=== PATIENT | male | born 1960 | race Caucasian/White ===

== ENCOUNTER 2019-07-09 15:57 | Emergency (ER) | payer OTHER, SELFPAY ==
[2019-07-09 16:09] VITALS: BP 161/86; PULSE 82; RESP 20; TEMP 37.1; O2SAT 99
--- NOTE | 2019-07-09 16:15 | ED.EXTPRO ---
HPI - Extremity Problem General Chief complaint: Extremity Problem,Nontraumatic Stated complaint: R/elbow pain History of Present Illness HPI Narrative: This is a 58-year-old male comes in complaining right elbow pain states that he had a pimple that he picked and started to leak a little bit when he picked it is continued to get red and swollen and hurting when he moves around. Patient states he talked to his doctor today who told him that he would need to have it drained but would not see him in the office until the covid is over. Patient states it has been a while and they will have to see him as a new patient. Related Data Allergies Allergy/AdvReac Type Severity Reaction Status Date / Time No Known Allergies Allergy Verified 07/09/19 16:14 Review of Systems Review of Systems: Narrative: CONSTITUTIONAL: Denies fever, chills, or sweats. EYES: Denies visual changes, redness, or discharge. ENT: Denies rhinorrhea, congestion, sore throat, or otalgia. CARDIOVASCULAR:Denies chest pain, palpitations, or edema. RESPIRATORY: Denies cough or dyspnea. GASTROINTESTINAL: Denies abdominal pain, nausea, vomiting, or diarrhea. GENITOURINARY: Denies dysuria or hematuria. SKIN:[Denies rash or itching. swollen right elbow and pain and red MUSCULOSKELETAL:Denies back pain, joint pain, or myalgia. NEUROLOGIC: Denies headache, numbness, or weakness. PSYCHIATRIC:Denies anxiety or depression PMFSH Social History Social History Gender identity (if verbalized by the patient): Male Comments At time as signature, I have reviewed and agree with nursing past medical, social, surgical and family history. Please see nursing chart for further information. There is no relevant family history pertinent to the presenting complaint. Exam Narrative: Exam Narrative: GENERAL:Well-appearing, well-nourished, and in no acute distress. HEAD:Normocephalic, atraumatic. EYES: PERRLA and EOMI. ENT: Nares clear, no rhinorrhea or epistaxis. Mucous membranes moist. NECK: Supple. CHEST: Clear to auscultation. No respiratory distress. HEART: Regular rate and rhythm. No murmur heard. Normal peripheral pulses. ABDOMEN: Soft, nontender, nondistended, normal active bowel sounds. EXTREMITIES: Normal range of motion. Right elbow edema with erythema and warmth. SKIN: Warm, dry, no rash. NEURO: No focal deficits. Alert and oriented x3. Course Vital Signs Vital signs: Vital Signs Temperature 98.8 F 07/09/19 16:09 Pulse Rate 82 07/09/19 16:09 Respiratory Rate 20 07/09/19 16:09 Blood Pressure 161/86 H 07/09/19 16:09 Pulse Oximetry 99 07/09/19 16:09 Temperature 98.8 F 07/09/19 16:09 Pulse Rate 82 07/09/19 16:09 Respiratory Rate 20 07/09/19 16:09 Blood Pressure 161/86 H 07/09/19 16:09 Pulse Oximetry 99 07/09/19 16:09 MDM - Extremity (Nontraumatic) Differential Diagnosis Differential diagnosis: Likely cellulitis, superficial thrombophlebitis and other Discharge Plan Discharge Clinical Impression: Cellulitis, Bursitis, Hypertension Patient Disposition: Home, Self-Care Condition: Stable Instructions: Antibiotic Form, Cellulitis (ED), Elbow Bursitis (ED) Additional Instructions: ice compresses to the area 20-30 minutes 4-6 times a day and as needed elevate the area if possible compression as much as possible antibiotic as directed--finish the medicine tylenol/ibuprofen for as needed for pain Use the medication as provided for severe pain--cautiion drowsiness--do not drink alcohol or drive with these medications. caution each tablet contains 325 mg of Tylenol--the maximum dose of Tylenol is 4000 mg in 24 hours. This medication may cause constipation consider starting a laxative at this time You need to follow up with your PCP regarding your blood pressure Prescriptions: New azithromycin [Zithromax Z-Jourdan] 250 mg tablet See Rx Instructions .ROUTE .COMPLEX Qty: 6 RF: 0 ibuprofen 600 mg tablet 6
== END 2019-07-09 16:33 | disposition home or self-care (01) ==
PROVIDERS: Emergency Provider Nurse Practitioner Family
DX: L03.113 Cellulitis of right upper limb (principal); M70.31 Other bursitis of elbow, right elbow; I10 Essential (primary) hypertension
CPT/HCPCS: 99203; G0463